=== PATIENT | male | born 1985 | race Caucasian/White ===

== ENCOUNTER 2016-08-24 00:59 | Inpatient (IN) | payer OTHER ==
[~2016-08-24] VITALS: Ht 177.8 cm; Wt 100.4 kg
[2016-08-24] VITALS (18 sets, daily range): BP systolic 119–164; BP diastolic 70–104; PULSE 60–100; RESP 10–24; TEMP 97.7–98.1; O2SAT 96–100
[2016-08-24] MEDS ORDERED: SODIUM CHLOR 0.9% 1000 ML INJ 1,000 ML IV ONE (01:06)
[2016-08-24] MEDS ORDERED: ONDANSETRON HCL 4 MG/2 ML VIAL IV PUSH ONE (01:15)
[2016-08-24] MEDS ORDERED: SODIUM CHLORIDE 0.9% FLUSH 10 ML FLUSH IVF PRN (01:15)
[2016-08-24] MEDS ORDERED: NALOXONE HCL 2 MG/2 ML VIAL IV PUSH ONE ×3 (01:15→01:30)
[2016-08-24] MEDS ORDERED: NALOXONE HCL 0.4 MG/ML AMP ONE (01:24)
[2016-08-24] MEDS ORDERED: NALOXONE INJ 4 MG in DEXTROSE 5% IN WATER INJ 246 ML IV SCH ×2 (01:30)
[2016-08-24 01:33] LABS: AUTOMATED NEUTROPHIL # 9.8 TH/MM3 (1.8-7.7); BASOPHIL # 0.2 TH/MM3 (0-0.2); BASOPHIL % 0.8 % (0.0-2.0); EOSINOPHIL # 0.4 TH/MM3 (0-0.4); EOSINOPHIL % 1.9 % (0.0-4.0); HEMATOCRIT 46.4 % (39.0-51.0); LYMPH % 45.5 % (9.0-44.0); LYMPHOCYTE # 9.5 TH/MM3 (1.0-4.8); MEAN CELL VOLUME 90.7 FL (80.0-100.0); NEUT % 46.8 % (16.0-70.0); PLATELET COUNT 317 TH/MM3 (150-450); RED BLOOD COUNT 5.12 MIL/MM3 (4.50-5.90); RED CELL DISTRIBUTION WIDTH 13.3 % (11.6-17.2)
[2016-08-24 01:36] LABS: BLOOD GAS BASE EXCESS -11.4 mmol/L (-2-2); BLOOD GAS CARBOXYHEMOGLOBIN 4.9 % (0-4); BLOOD GAS HCO3 15 mmol/L (22-26); BLOOD GAS O2 HGB SATURATION 91 % (90-100); BLOOD GAS OXYGEN CONTENT 18.8 Vol % (12.0-20.0); BLOOD GAS PCO2 43 mmHg (38-42); BLOOD GAS PO2 107 mmHg (61-120); BLOOD GAS TOTAL HGB 14.6 G/DL (12.0-16.0); TEMP CORR TO 98.6
[2016-08-24 01:37] LABS: CRITICAL VALUE YES; DRAW SITE RT FEMORAL; LITER FLOW 3 L/M; NUMBER OF ARTERIAL PUNCTURES 1; OXYGEN DEVICE NASAL CANNULA; STAT YES
[2016-08-24 01:39] LABS: HEMO FLAGS AUTO DIFF
--- NOTE | 2016-08-24 01:48 | RADRPT ---
EXAM DATE/TIME: 08/24/2016 01:19 [facility] COMPARISON: No previous studies available for comparison. INDICATIONS : Pt found unresponsive. MEDICAL HISTORY : Unobtainable SURGICAL HISTORY : Unobtainable ENCOUNTER: Initial ACUITY: 1 day PAIN SCORE: Non-responsive. LOCATION: Bilateral chest FINDINGS: A single view of the chest demonstrates the lungs to be symmetrically aerated without evidence of mas s, infiltrate or effusion. The cardiomediastinal contours are unremarkable. Osseous structures are intact. CONCLUSION: No acute disease. José Miguel Swartz MD on August 24, 2016 at 1:46 Board Certified Radiologist. This report was verified electronically.
--- NOTE | 2016-08-24 01:52 | PD ---
HPI Chief Complaint: OD/ Ingestion Time Seen by Provider: 01:06 Travel History International Travel<30 days: No Contact w/Intl Traveler<30days: No Traveled to known affect area: No History of Present Illness HPI This is an approximately 25-year-old male, brought in by private vehicle, obtunded and unconscious, reported history of recent heroin use. No other history is available. History Past Medical History Medical History: Unable to Obtain Tetanus Vaccination: Unknown Influenza Vaccination: No Past Surgical History Surgical History: Unable to Obtain Social History Alcohol Use: No (UTO) Tobacco Use: No (UTO) Allergies-Medications (Allergen,Severity, Reaction): Coded Allergies: UNOBTAINABLE (Unverified , 08/24/16) Reported Meds & Prescriptions Reported Meds & Active Scripts Active Active Prescriptions or Reported Medications Unobtainable Review of Systems ROS Limitations: Clinical Condition Physical Exam Narrative GENERAL: Approximately 25-year-old male, clammy, diaphoretic, obtunded, agonal respirations. SKIN: Cool and clammy. HEAD: Atraumatic. Normocephalic. EYES: Pinpoint pupils. ENT: No nasal bleeding or discharge. Mucous membranes pink and moist. NECK: Trachea midline. No JVD. CARDIOVASCULAR: Strong pulses. Heart rate regular. RESPIRATORY: Agonal gasping respirations, ineffectual. GASTROINTESTINAL: Abdomen obese and soft. No distention. MUSCULOSKELETAL: No obvious deformities. No edema. No obvious injuries. NEUROLOGICAL: Obtunded, minimal response to noxious stimuli, no lateralization. Data Data Last Documented VS Vital Signs Date Time Temp Pulse Resp B/P Pulse Ox O2 Delivery O2 Flow Rate FiO2 08/24/16 01:00 100 12 148/87 100 08/24/16 01:00 15.00 Orders Electrocardiogram (08/24/16 01:06) Complete Blood Count With Diff (08/24/16 01:06) Comprehensive Metabolic Panel (08/24/16 01:06) Chest, Single Ap (08/24/16 01:06) Ct Brain W/O Iv Contrast(Rout) (08/24/16 01:06) Arterial Blood Gas (Abg) (08/24/16 01:06) Blood Glucose (08/24/16 01:06) Iv Access Insert/Monitor (08/24/16 01:06) Ecg Monitoring (08/24/16 01:06) Oximetry (08/24/16 01:06) Sodium Chloride 0.9% Flush (Ns Flush) (08/24/16 01:15) Sodium Chlor 0.9% 1000 Ml Inj (Ns 1000 M (08/24/16 01:06) Alcohol (Ethanol) (08/24/16 01:06) Salicylates (Aspirin) (08/24/16 01:06) Tylenol (Acetaminophen) (08/24/16 01:06) Naloxone Inj (Narcan Inj) (08/24/16 01:15) Naloxone Inj (Narcan Inj) (08/24/16 01:15) Ondansetron Inj (Zofran Inj) (08/24/16 01:15) Naloxone Inj (Narcan Inj) (08/24/16 01:30) Arterial Blood Gas (Abg) (08/24/16 ) Naloxone Inj (Narcan Inj) (08/24/16 01:24) Naloxone Inj (Narcan Inj) (08/24/16 01:30) Admit To Inpatient (08/24/16 ) Code Status (08/24/16 02:49) Vital Signs (Adult) ASIYA.Q1H (08/24/16 02:49) Activity Bed Rest (08/24/16 02:49) ^ Elevate Head Of Bed (08/24/16 02:49) Neuro Checks . ORDERED (08/24/16 02:49) Intake + Output Q1H (08/24/16 02:49) Diet Npo (08/24/16 Breakfast) Sodium Chlor 0.9% 1000 Ml Inj (Ns 1000 M (08/24/16 02:49) Sodium Chloride 0.9% Flush (Ns Flush) (08/24/16 03:00) Sodium Chloride 0.9% Flush (Ns Flush) (08/24/16 09:00) Acetaminophen (Tylenol) (08/24/16 03:00) Lorazepam Inj (Ativan Inj) (08/24/16 03:00) Ondansetron Inj (Zofran Inj) (08/24/16 03:00) Metoclopramide Inj (Reglan Inj) (08/24/16 03:00) Prochlorperazine Supp (Compazine Supp) (08/24/16 03:00) Albuterol-Ipratropium Neb (Duoneb Neb) (08/24/16 03:00) Complete Blood Count With Diff (08/25/16 04:00) Comprehensive Metabolic Panel (08/25/16 04:00) Creatine Kinase (Cpk) (08/24/16 02:49) Magnesium (Mg) (08/25/16 04:00) Phosphorus (Po4) (08/25/16 04:00) Pt Request For Service (08/24/16 02:49) Consult Hospitalist (08/24/16 ) Epidemiologist / Telemetry ASIYA.Q8H (08/24/16 02:49) Heparin Inj (Heparin Inj) (08/24/16 03:00) Scd Bilateral/Knee High ASIYA.BID (08/24/16 02:49) Lauro Bilateral/Knee High ASIYA.QSHIFT (08/24/16 02:49) ^ Initiate Protocol (08/24/16 02:49) Instruction (08/24/16 02:49) Misc Nursing Information (08/24/16 03:00) Chlorhexidine 2% Cloth (Chlorhexidine 2% (08/24/16 04:00) Chlorhexidine 2% Cloth (Chlorhexidine 2% (08/24/16 03:00) Mrsa Pcr Surveillance (08/24/16 02:49) Docusate Sodium-Senna (Delmy-Colace) (08/24/16 09:00) Magnesium Hydroxide Liq (Milk Of Magnesi (08/24/16 03:00) Sennosides (Senokot) (08/24/16 03:00) Bisacodyl Supp (Dulcolax Supp) (08/24/16 03:00) Lactulose Liq (Lactulose Liq) (08/24/16 03:00) Inpatient Certification (08/24/16 ) Admit Order (Ed Use Only) (08/24/16 ) Labs Laboratory Tests Test 08/24/16 08/24/16 08/24/16 01:05 01:10 01:37 Blood Gas Puncture Site RT FEMORAL LT RADIAL Blood Gas Patient Temperature 98.6 98.6 Blood Gas HCO3 15 mmol/L 17 mmol/L Blood Gas Base Excess -11.4 mmol/L -9.6 mmol/L Blood Gas Oxygen Saturation 91 % 92 % Arterial Blood pH 7.18 7.21 Arterial Blood Partial 43 mmHg 44 mmHg Pressure CO2 Arterial Blood Partial 107 mmHg 104 mmHG Pressure O2 Arterial Blood Oxygen Content 18.8 Vol % 17.5 Vol % Arterial Blood 4.9 % 4.5 % Carboxyhemoglobin Arterial Blood Methemoglobin 1.0 % 0.7 % Blood Gas Hemoglobin 14.6 G/DL 13.5 G/DL Oxygen Delivery Device NASAL CANNULA NASAL CANNULA Blood Gas Liter Flow 3 L/M 3 L/M White Blood Count 21.0 TH/MM3 Red Blood Count 5.12 MIL/MM3 Hemoglobin 14.8 GM/DL Hematocrit 46.4 % Mean Corpuscular Volume 90.7 FL Mean Corpuscular Hemoglobin 29.0 PG Mean Corpuscular Hemoglobin 32.0 % Concent Red Cell Distribution Width 13.3 % Platelet Count 317 TH/MM3 Mean Platelet Volume 10.1 FL Neutrophils (%) (Auto) 46.8 % Lymphocytes (%) (Auto) 45.5 % Monocytes (%) (Auto) 5.0 % Eosinophils (%) (Auto) 1.9 % Basophils (%) (Auto) 0.8 % Neutrophils # (Auto) 9.8 TH/MM3 Lymphocytes # (Auto) 9.5 TH/MM3 Monocytes # (Auto) 1.0 TH/MM3 Eosinophils # (Auto) 0.4 TH/MM3 Basophils # (Auto) 0.2 TH/MM3 CBC Comment AUTO DIFF Differential Total Cells 100 Counted Neutrophils % (Manual) 39 % Band Neutrophils % 3 % Lymphocytes % 47 % Monocytes % 3 % Eosinophils % 1 % Basophils % 4 % Neutrophils # (Manual) 9.5 TH/MM3 Metamyelocytes 2 % Promyelocytes 1 % Differential Comment FINAL DIFF MANUAL Platelet Estimate NORMAL Platelet Morphology Comment ENLARGED Sodium Level 136 MEQ/L Potassium Level 2.4 MEQ/L Chloride Level 101 MEQ/L Carbon Dioxide Level 18.9 MEQ/L Anion Gap 16 MEQ/L Blood Urea Nitrogen 13 MG/DL Creatinine 1.38 MG/DL Estimat Glomerular Filtration 44 ML/MIN Rate Random Glucose 251 MG/DL Calcium Level 8.1 MG/DL Total Bilirubin 0.5 MG/DL Aspartate Amino Transf 48 U/L (AST/SGOT) Alanine Aminotransferase 78 U/L (ALT/SGPT) Alkaline Phosphatase 101 U/L Total Protein 8.1 GM/DL Albumin 4.2 GM/DL Salicylates Level LESS THAN 1.7 MG/DL Acetaminophen Level LESS THAN 2.0 MCG/ML Ethyl Alcohol Level 91 MG/DL MDM Medical Decision Making Medical Screen Exam Complete: Yes Emergency Medical Condition: Yes Interpretation(s) My review of EKG: Normal sinus rhythm at a rate of 93, normal axis, incomplete right bundle branch block, widespread ST changes of inferolateral ST depressions and a little bit of anterior precordial ST elevation suggestive of diffuse ischemia. LABS: CBC remarkable for white count 21,000 CMP Salicylates negative Acetaminophen Alcohol ABG 7.18/43/107/15, base excess -11.4 Repeat ABG 7.205/44/104/16.9, base excess -9.6 Differential Diagnosis Overdose, head bleed, hyperglycemia, sepsis, other Narrative Course Medical decision making Initial: This is approximately 25-year-old man who presents emergent from her private vehicle with reported history of heroin overdose. Patient obtunded, with agonal respirations, and pinpoint pupils. Responded well to 2 mg of 2 mg of Narcan with improved color, improved respirations. Still not really awake. Given a second dose of Narcan with further improvement. Able to answer some questions. ABG shows marked respiratory and metabolic acidosis. Apparently further doses of IV push Narcan arm backorder. We'll do Narcan drip, repeat ABG , may need intubation. 1:52 AM: Repeat blood gas shows some gradual improvement as metabolic acidosis. We'll we'll continue Narcan drip and volume resuscitation at this point. Critical Care Narrative Aggregate critical care time was 40 minutes. Time to perform other separately billable procedures was not included in the critical care time. My time did not include minutes spent treating any other patients simultaneously or on activities that did not directly contribute to the patient's treatment. The services I provided to this patient were to treat and/or prevent clinically significant deterioration that could result in: , disability, respiratory failure, permanent morbidity. I provided critical care services requiring my management, as noted below: Chart data review, documentation time, medication orders and management, vital sign assessments/reviewing monitor data, ordering and reviewing lab tests, ordering and interpreting/reviewing x-rays and diagnostic studies, care of the patient and discussion of the patient with the admitting physicians. Scripts Unable to Obtain Active Prescriptions or Reported Meds Sergio Jeronimo MD Aug 24, 2016 01:52
[2016-08-24 02:01] LABS: ACETAMINOPHEN LESS THAN 2.0 MCG/ML (10.0-30.0); ALKALINE PHOSPHATASE 101 U/L (45-117); ALT (GPT) 78 U/L (12-78); ANION GAP 16 MEQ/L (5-15); AST (GOT) 48 U/L (15-37); BICARBONATE 18.9 MEQ/L (21.0-32.0); BLOOD UREA NITROGEN 13 MG/DL (7-18); CHLORIDE 101 MEQ/L (98-107); GLOMERULAR FILTRATION RATE 44 ML/MIN (>89); SODIUM (NA) 136 MEQ/L (136-145); TOTAL BILIRUBIN ADULT 0.5 MG/DL (0.2-1.0)
[2016-08-24 02:02] LABS: POTASSIUM 2.4 MEQ/L (3.5-5.1)
[2016-08-24 02:03] LABS: BLOOD GAS BASE EXCESS -9.6 mmol/L (-2-2); BLOOD GAS CARBOXYHEMOGLOBIN 4.5 % (0-4); BLOOD GAS HCO3 17 mmol/L (22-26); BLOOD GAS METHEMOGLOBIN 0.7 % (0-2); BLOOD GAS O2 HGB SATURATION 92 % (90-100); BLOOD GAS OXYGEN CONTENT 17.5 Vol % (12.0-20.0); BLOOD GAS PCO2 44 mmHg (38-42); BLOOD GAS PO2 104 mmHG (61-120); BLOOD GAS TOTAL HGB 13.5 G/DL (12.0-16.0); CRITICAL VALUE YES; DRAW SITE LT RADIAL; LITER FLOW 3 L/M; NUMBER OF ARTERIAL PUNCTURES 1; OXYGEN DEVICE NASAL CANNULA; STAT YES; TEMP CORR TO 98.6; ULNAR PULSE PRESENT
--- NOTE | 2016-08-24 02:47 | RADRPT ---
EXAM DATE/TIME: 08/24/2016 02:34 [facility] COMPARISON: No previous studies available for comparison. INDICATIONS : Altered mental status; possible overdose. RADIATION DOSE: 56.35 CTDIvol (mGy) MEDICAL HISTORY : Non-responsive. SURGICAL HISTORY : Non-responsive. ENCOUNTER: Initial ACUITY: 1 day PAIN SCALE: Non-responsive LOCATION: cranial TECHNIQUE: Multiple contiguous axial images were obtained of the head. Using automated exposure control and adj ustment of the mA and/or kV according to patient size, radiation dose was kept as low as reasonably a chievable to obtain optimal diagnostic quality images. FINDINGS: CEREBRUM: The ventricles are normal for age. No evidence of midline shift, mass lesion, hemorrhage or acute in farction. No extra-axial fluid collections are seen. POSTERIOR FOSSA: The cerebellum and brainstem are intact. The 4th ventricle is midline. The cerebellopontine angle i s unremarkable. EXTRACRANIAL: The visualized portion of the orbits is intact. SKULL: The calvaria is intact. No evidence of skull fracture. CONCLUSION: 1. No acute intracranial abnormalities. José Miguel Swartz MD on August 24, 2016 at 2:44 Board Certified Radiologist. This report was verified electronically.
[2016-08-24 02:57] LABS: BANDS 3 % (0-6); BASOPHILS 4 % (0-2); EOSINOPHILS 1 % (0-4); METAMYELOCYTES 2 % (0-1); NEUTROPHIL # MANUAL DIFF 9.5 TH/MM3 (1.8-7.7); PLATELET ESTIMATE SMEAR NORMAL (NORMAL); PLATELET MORPHOLOGY ENLARGED (NORMAL); POLYS (SEG NEUTROPHILS) 39 % (16-70); PROMYELOCYTES 1 % (0-0); SCAN/DIFF FINAL DIFF MANUAL; WBC DIFF SAMPLE 100
[2016-08-24] MEDS ORDERED: MAGNESIUM HYDROXIDE SUSP 30 ML CUP PO PRN (03:00)
[2016-08-24] MEDS ORDERED: CHLORHEXIDINE GLUCONATE 2 % 1 PACK (2 CLOTHS) TOP PRN (03:00)
[2016-08-24] MEDS ORDERED: BISACODYL 10 MG SUPP RECTAL PRN (03:00)
[2016-08-24] MEDS ORDERED: ACETAMINOPHEN 325 MG TAB PO PRN (03:00)
[2016-08-24] MEDS ORDERED: SENNOSIDES 8.6 MG TAB PO PRN (03:00)
[2016-08-24] MEDS ORDERED: METOCLOPRAMIDE HCL 10 MG/2 ML VIAL IV PRN (03:00)
[2016-08-24] MEDS ORDERED: MISCELLANEOUS NURSING INFORMATION XX SCH (03:00)
[2016-08-24] MEDS ORDERED: SODIUM CHLORIDE 0.9% FLUSH 10 ML FLUSH PRN (03:00)
[2016-08-24] MEDS ORDERED: LORazepam 2 MG/ML VIAL IV PRN (03:00)
[2016-08-24] MEDS ORDERED: LACTULOSE SYRUP 20 GM/30 ML CUP PO PRN (03:00)
[2016-08-24] MEDS ORDERED: RESP: ALBUTEROL 2.5 MG/IPRATROPIUM 0.5 MG NEB (PRN) INH (03:00)
[2016-08-24] MEDS ORDERED: PROCHLORPERAZINE 25 MG SUPP RECTAL PRN (03:00)
[2016-08-24] MEDS ORDERED: ONDANSETRON HCL 4 MG/2 ML VIAL IV PRN (03:00)
[2016-08-24] MEDS: SODIUM CHLOR 0.9% 1000 ML INJ 1,000 ML IV SCH ×2 (03:38→14:44)
[2016-08-24] MEDS: CHLORHEXIDINE GLUCONATE 2 % 1 PACK (2 CLOTHS) TOP SCH (04:00)
[2016-08-24] MEDS: HEPARIN SODIUM - SQ 10,000 UNITS/ML VIAL SQ SCH ×2 (04:11→16:10)
[2016-08-24 04:20] LABS: CREATINE KINASE 131 U/L (39-308)
[2016-08-24] MEDS ORDERED: NALOXONE HCL 4 MG/10 ML MDV IV ONE (05:00)
--- NOTE | 2016-08-24 05:51 | HHI.HP ---
HPI Service Critical Care Medicine Primary Care Physician Unknown Admission Diagnosis heroin overdose Diagnosis: Travel History International Travel<30 Days: No Contact w/Intl Traveler <30 Da: No Traveled to Known Affected Are: No History of Present Illness This is an approximately 25-year-old male, brought in by private vehicle, obtunded and unconscious, reported history of recent heroin use. Patient is to altered and lethargic to be able to provide any meaningful history. All information is obtained from the medical record Review of Systems ROS Unobtainable Past Family Social History Allergies: Coded Allergies: UNOBTAINABLE (Unverified , 08/24/16) Past Medical History Unobtainable Past Surgical History Unobtainable Reported Medications Reported Meds & Active Scripts Active Active Prescriptions or Reported Medications Unobtainable Active Ordered Medications Current Medications Medications (Trade) Dose Ordered Sig/[place] Route PRN Reason Start Time Stop Time Status Last Admin Dose Admin Naloxone HCl 4 mg/ Dextrose 250 ml @ 0 mls/hr TITRATE IV 08/24/16 01:30 08/24/16 02:14 Sodium Chloride (NS 1000 ml Inj) 1,000 ml @ 84 mls/hr [id number] IV 08/24/16 02:49 08/24/16 03:38 Sodium Chloride (NS Flush) 2 ml UNSCH PRN .XX FLUSH AFTER USING IV ACCESS 08/24/16 03:00 Sodium Chloride (NS Flush) 2 ml BID .XX 08/24/16 09:00 Acetaminophen (Tylenol) 650 mg Q6H PRN PO PAIN 1-10 AND/OR FEVER >101F 08/24/16 03:00 Lorazepam (Ativan Inj) 1 mg Q1H PRN IV Agitation/Sedation 08/24/16 03:00 Ondansetron HCl (Zofran Inj) 4 mg Q6H PRN IV NAUSEA OR VOMITING 08/24/16 03:00 Metoclopramide HCl (Reglan Inj) 10 mg Q6H PRN IV NAUSEA OR VOMITING 08/24/16 03:00 Prochlorperazine (Compazine Supp) 25 mg Q12H PRN RECTAL NAUSEA OR VOMITING 08/24/16 03:00 Heparin Sodium (Porcine) (Heparin Inj) 5,000 units Q12H SQ 08/24/16 03:00 08/24/16 04:11 Miscellaneous Information 1 [id number] XX 08/24/16 03:00 08/24/16 03:00 Chlorhexidine Gluconate (Chlorhexidine 2% Cloth) 3 pack Taper DAILY@04 TOP 08/24/16 04:00 08/20/17 03:59 08/24/16 04:00 Chlorhexidine Gluconate (Chlorhexidine 2% Cloth) 3 pack UNSCH PRN TOP HYGIENIC CARE 08/24/16 03:00 Senna/Docusate Sodium (Delmy-Colace) 1 tab BID PO 08/24/16 09:00 Magnesium Hydroxide (Milk Of Magnesia Liq) 30 ml Q12H PRN PO MILD - MODERATE CONSTIPATION 08/24/16 03:00 Sennosides (Senokot) 17.2 mg Q12H PRN PO MODERATE - SEVERE CONSTIPATION 08/24/16 03:00 Bisacodyl (Dulcolax Supp) 10 mg DAILY PRN RECTAL SEVERE CONSITIPATION 08/24/16 03:00 Lactulose (Lactulose Liq) 30 ml DAILY PRN PO SEVERE CONSITIPATION 08/24/16 03:00 Family History Unobtainable Social History Unobtainable Physical Exam Vital Signs Vital Signs Date Time Temp Pulse Resp B/P Pulse Ox O2 Delivery O2 Flow Rate FiO2 08/24/16 04:00 77 08/24/16 03:09 96 Nasal Cannula 3.00 08/24/16 03:00 91 19 127/78 98 Nasal Cannula 2 08/24/16 01:00 100 12 148/87 100 08/24/16 01:00 99 15.00 Physical Exam GENERAL: Well-nourished, well-developed patient. Lethargic and altered SKIN: Warm and dry. HEAD: Normocephalic. EYES: No scleral icterus. No injection or drainage. NECK: Supple, trachea midline. No JVD or lymphadenopathy. CARDIOVASCULAR: Regular rate and rhythm without murmurs, gallops, or rubs. RESPIRATORY: Breath sounds equal bilaterally. No accessory muscle use. GASTROINTESTINAL: Abdomen soft, non-tender, nondistended. MUSCULOSKELETAL: No cyanosis, or edema. BACK: Nontender without obvious deformity. No CVA tenderness. EXTREMITIES: No clubbing cyanosis or edema Laboratory Laboratory Tests Test 08/24/16 08/24/16 08/24/16 01:05 01:10 01:37 Blood Gas Puncture Site RT FEMORAL LT RADIAL Blood Gas Patient Temperature 98.6 98.6 Blood Gas HCO3 15 17 Blood Gas Base Excess -11.4 -9.6 Blood Gas Oxygen Saturation 91 92 Arterial Blood pH 7.18 7.21 Arterial Blood Partial 43 44 Pressure CO2 Arterial Blood Partial 107 104 Pressure O2 Arterial Blood Oxygen Content 18.8 17.5 Arterial Blood 4.9 4.5 Carboxyhemoglobin Arterial Blood Methemoglobin 1.0 0.7 Blood Gas Hemoglobin 14.6 13.5 Oxygen Delivery Device NASAL CANNULA NASAL CANNULA Blood Gas Liter Flow 3 3 White Blood Count 21.0 Red Blood Count 5.12 Hemoglobin 14.8 Hematocrit 46.4 Mean Corpuscular Volume 90.7 Mean Corpuscular Hemoglobin 29.0 Mean Corpuscular Hemoglobin 32.0 Concent Red Cell Distribution Width 13.3 Platelet Count 317 Mean Platelet Volume 10.1 Neutrophils (%) (Auto) 46.8 Lymphocytes (%) (Auto) 45.5 Monocytes (%) (Auto) 5.0 Eosinophils (%) (Auto) 1.9 Basophils (%) (Auto) 0.8 Neutrophils # (Auto) 9.8 Lymphocytes # (Auto) 9.5 Monocytes # (Auto) 1.0 Eosinophils # (Auto) 0.4 Basophils # (Auto) 0.2 CBC Comment AUTO DIFF Differential Total Cells 100 Counted Neutrophils % (Manual) 39 Band Neutrophils % 3 Lymphocytes % 47 Monocytes % 3 Eosinophils % 1 Basophils % 4 Neutrophils # (Manual) 9.5 Metamyelocytes 2 Promyelocytes 1 Differential Comment FINAL DIFF MANUAL Platelet Estimate NORMAL Platelet Morphology Comment ENLARGED Sodium Level 136 Potassium Level 2.4 Chloride Level 101 Carbon Dioxide Level 18.9 Anion Gap 16 Blood Urea Nitrogen 13 Creatinine 1.38 Estimat Glomerular Filtration 44 Rate Random Glucose 251 Calcium Level 8.1 Total Bilirubin 0.5 Aspartate Amino Transf 48 (AST/SGOT) Alanine Aminotransferase 78 (ALT/SGPT) Alkaline Phosphatase 101 Total Creatine Kinase 131 Total Protein 8.1 Albumin 4.2 Salicylates Level LESS THAN 1.7 Acetaminophen Level LESS THAN 2.0 Ethyl Alcohol Level 91 Result Diagram: 08/24/160 08/24/16 011 Imaging Last [address] 08/24/16105 Signed Impressions: Service Date/Time: Wednesday, August 24, 2016 02:34 - CONCLUSION: 1. No acute intracranial abnormalities. José Miguel Swartz MD Chest X-Ray 08/24/16 0106 Signed Impressions: Service Date/Time: Wednesday, August 24, 2016 01:19 - CONCLUSION: No acute disease. José Miguel Swartz MD Assessment and Plan Assessment and Plan Altered mental status - Heroine overdose - Nasal trumpet for an airway protection - GCS 11 - CT head negative Heroine overdose - Monitor for withdrawal - Supportive care - Telemetry in the ICU - Narcan when necessary Hypokalemia - Electrolytes replacement per ICU protocol DVT GI prophylaxis - Teds SCDs subcutaneous heparin and Pepcid Critical Care: The total critical care time was 35 minutes. Time to perform other separately billable procedures was not included in the critical care time. Adolfo Costello MD Aug 24, 2016 05:51
[2016-08-24] MEDS ORDERED: POTASSIUM CHLOR 20 MEQ PREMIX 100 ML IV PRN ×2 (06:15)
[2016-08-24] MEDS ORDERED: MAGNESIUM SULFATE INJ 2 GM in SODIUM CHLORIDE 0.9% INJ 96 ML IV PRN (06:15)
[2016-08-24] MEDS ORDERED: MAGNESIUM OXIDE 400 MG TAB PO PRN (06:15)
[2016-08-24] MEDS ORDERED: POTASSIUM CHLOR 40 MEQ PREMIX 100 ML IV PRN ×2 (06:15)
[2016-08-24] MEDS ORDERED: POTASSIUM PHOSPHATE INJ 30 MMOL in SODIUM CHLOR 0.9% 250 ML INJ 250 ML IV PRN (06:15)
[2016-08-24] MEDS ORDERED: POTASSIUM CHLORIDE 25 MEQ EFFERVESCENT TAB PO PRN (06:15)
[2016-08-24] MEDS ORDERED: POTASSIUM PHOSPHATE MONOBASIC 500 MG TAB PO PRN (06:15)
[2016-08-24] MEDS ORDERED: POTASSIUM PHOSPHATE MONOBASIC 500 MG TAB PO/TUBE PRN (06:15)
[2016-08-24] MEDS ORDERED: MAGNESIUM SULFATE INJ 4 GM in SODIUM CHLORIDE 0.9% INJ 92 ML IV PRN (06:15)
[2016-08-24] MEDS ORDERED: SODIUM PHOSPHATE INJ 30 MMOL in SODIUM CHLOR 0.9% 250 ML INJ 240 ML IV PRN (06:15)
[2016-08-24] MEDS ORDERED: POTASSIUM CHLORIDE 25 MEQ EFFERVESCENT TAB PO ONE (07:30)
[2016-08-24] MEDS: DOCUSATE SODIUM 50 MG/SENNA 8.6 MG TAB PO SCH ×2 (08:10→19:54)
[2016-08-24] MEDS: POTASSIUM CHLOR 20 MEQ PREMIX 100 ML IV SCH ×2 (08:10→09:15)
[2016-08-24] MEDS: SODIUM CHLORIDE 0.9% FLUSH 10 ML FLUSH SCH ×2 (08:12→19:56)
[2016-08-24] MEDS ORDERED: POTASSIUM CHLORIDE 25 MEQ EFFERVESCENT TAB PO SCH (09:00)
[2016-08-24] MEDS ORDERED: POTASSIUM CHLORIDE 10 MEQ CAP PO ONE (12:15)
--- NOTE | 2016-08-24 13:08 | EKG ---
Date Performed: 08/24/2016 Time Performed: 01:07:10 PTAGE: 89 years EKG: Sinus rhythm INCOMPLETE RIGHT BUNDLE BRANCH BLOCK NONSPECIFIC ST & T-WAVE ABNORMALITY BORDERLINE ECG INTERPRETATI ON BASED ON A DEFAULT AGE OF 40 YEARS NO PREVIOUS TRACING DOCTOR: Ronn Moura Interpretating Date/Time 08/24/2016 13:06:44
[2016-08-24 13:24] LABS: MAGNESIUM 2.7 MG/DL (1.5-2.5)
[2016-08-24] MEDS ORDERED: LORazepam 2 MG/ML VIAL IV PUSH PRN ×2 (15:45)
[2016-08-24] MEDS ORDERED: LORazepam 1 MG TAB PO PRN (15:45)
[2016-08-24] MEDS ORDERED: LORazepam 2 MG TAB PO PRN (15:45)
[2016-08-24] MEDS ORDERED: FLUMAZENIL 0.5 MG/5 ML VIAL IV PUSH PRN (15:45)
--- NOTE | 2016-08-24 16:25 | HHI.PR ---
Addendum to Inpatient Note Addendum Reason: Additional Documentation Additional Information The pt was resting comfortably in bed. Family was at the bedside. He denied any symptoms. He wanted to walk around. He said he never used heroin before. He said he used it because he was upset. Repeat BMP pending. Add insulin sliding scale as glucose was high. Continue IVFs. Add nicotine patch, along with smoking cessation instruction. Advanced diet. Discussed with nursing. Lex Ordaz DO Aug 24, 2016 16:24
[2016-08-24] MEDS ORDERED: DEXTROSE 50% IN WATER 50 ML VIAL(D50) IV PUSH PRN (16:30)
[2016-08-24] MEDS ORDERED: GLUCAGON 1 MG/ML VIAL OTHER PRN (16:30)
[2016-08-24] MEDS: NICOTINE 21 MG/24 HR PATCH T-DERMAL SCH (17:15)
[2016-08-24] MEDS: INSULIN ASPART SUPPLEMENTAL SCALE SQ SCH (19:54)
[2016-08-24 20:56] LABS: BICARBONATE 25.3 MEQ/L (21.0-32.0); POTASSIUM 4.5 MEQ/L (3.5-5.1)
[2016-08-25] VITALS (7 sets, daily range): BP systolic 106–145; BP diastolic 67–96; PULSE 64–78; RESP 12–18; TEMP 96.8–98.3; O2SAT 97–100
[2016-08-25] MEDS: SODIUM CHLOR 0.9% 1000 ML INJ 1,000 ML IV SCH (01:10)
[2016-08-25] MEDS: HEPARIN SODIUM - SQ 10,000 UNITS/ML VIAL SQ SCH ×2 (03:00→15:37)
[2016-08-25] MEDS: CHLORHEXIDINE GLUCONATE 2 % 1 PACK (2 CLOTHS) TOP SCH (04:00)
[2016-08-25 06:03] LABS: AUTOMATED NEUTROPHIL # 4.8 TH/MM3 (1.8-7.7); BASOPHIL # 0.1 TH/MM3 (0-0.2); BASOPHIL % 0.7 % (0.0-2.0); EOSINOPHIL # 0.2 TH/MM3 (0-0.4); EOSINOPHIL % 2.5 % (0.0-4.0); HEMATOCRIT 44.1 % (39.0-51.0); LYMPH % 29.9 % (9.0-44.0); LYMPHOCYTE # 2.4 TH/MM3 (1.0-4.8); MEAN CELL VOLUME 87.8 FL (80.0-100.0); MEAN CORPUSCULAR HEMOGLOBIN 29.3 PG (27.0-34.0); MEAN CORPUSCULAR HGB CONC 33.4 % (32.0-36.0); MONO % 6.9 % (0.0-8.0); PLATELET COUNT 140 TH/MM3 (150-450); RED BLOOD COUNT 5.03 MIL/MM3 (4.50-5.90); RED CELL DISTRIBUTION WIDTH 13.8 % (11.6-17.2); WHITE BLOOD COUNT 8.1 TH/MM3 (4.0-11.0)
[2016-08-25 06:21] LABS: ALKALINE PHOSPHATASE 86 U/L (45-117); ALT (GPT) 55 U/L (12-78); ANION GAP 7 MEQ/L (5-15); AST (GOT) 27 U/L (15-37); BICARBONATE 24.4 MEQ/L (21.0-32.0); BLOOD UREA NITROGEN 10 MG/DL (7-18); CHLORIDE 108 MEQ/L (98-107); GLOMERULAR FILTRATION RATE 107 ML/MIN (>89); POTASSIUM 4.2 MEQ/L (3.5-5.1); SODIUM (NA) 139 MEQ/L (136-145); TOTAL BILIRUBIN ADULT 0.7 MG/DL (0.2-1.0)
[2016-08-25 06:22] LABS: MAGNESIUM 2.1 MG/DL (1.5-2.5)
[2016-08-25] MEDS: INSULIN ASPART SUPPLEMENTAL SCALE SQ SCH (06:35)
[2016-08-25 06:45] LABS: HEMO FLAGS AUTO DIFF
[2016-08-25 06:46] LABS: PLATELET ESTIMATE SMEAR LOW (NORMAL); PLATELET MORPHOLOGY NORMAL (NORMAL); SCAN/DIFF AUTO DIFF CONFIRMED
[2016-08-25] MEDS: NICOTINE 21 MG/24 HR PATCH T-DERMAL SCH (08:29)
[2016-08-25] MEDS: DOCUSATE SODIUM 50 MG/SENNA 8.6 MG TAB PO SCH (08:30)
[2016-08-25] MEDS: SODIUM CHLORIDE 0.9% FLUSH 10 ML FLUSH SCH (08:30)
[2016-08-25] MEDS ORDERED: REMOVE OLD PATCH T-DERMAL SCH (09:00)
[2016-08-25] MEDS ORDERED: INSULIN ASPART SUPPLEMENTAL SCALE SQ SCH (11:00)
--- NOTE | 2016-08-25 11:46 | HHI.PR ---
Subjective Remarks Follow-up encephalopathy. He is now alert and oriented 4. He regrets of his actions. States he was upset with his and experimented on heroin for the first time. He admits to alcohol use but not on a daily basis. He also smokes. Denies depression and suicidal ideations. He is gainfully employed. Discussed with RN Objective Vitals Vital Signs Date Time Temp Pulse Resp B/P Pulse Ox O2 Delivery O2 Flow Rate FiO2 08/25/16 10:00 72 121/83 08/25/16 09:00 70 136/92 08/25/16 08:00 97.8 68 106/70 08/25/16 04:00 98.2 68 14 116/81 100 08/25/16 00:00 98.3 78 12 133/67 100 08/24/16 20:00 98.0 92 18 135/104 99 08/24/16 17:01 78 17 137/81 08/24/16 16:00 97.8 70 14 123/77 08/24/16 15:00 60 10 131/75 08/24/16 14:00 76 19 123/70 08/24/16 12:00 97.7 87 24 119/74 96 I/O 08/24/16 08/24/16 08/24/16 08/25/16 08/25/16 08/25/16 07:00 15:00 23:00 07:00 15:00 23:00 Intake Total 962 ml 836 ml Balance 962 ml 836 ml Intake Oral 480 ml 240 ml IV Total 482 ml 596 ml # Voids 3 1 # Bowel Movements 1 0 Result Diagram: 08/25/16 0500 08/25/16 0500 Imaging Last Impressions Head CT 08/24/16105 Signed Impressions: Service Date/Time: Wednesday, August 24, 2016 02:34 - CONCLUSION: 1. No acute intracranial abnormalities. José Miguel Swartz MD Chest X-Ray 08/24/16105 Signed Impressions: Service Date/Time: Wednesday, August 24, 2016 01:19 - CONCLUSION: No acute disease. José Miguel Swartz MD Objective Remarks GENERAL: Well-developed, 1 nor is in no distress SKIN: Warm and dry. HEAD: Atraumatic. Normocephalic. EYES: Pupils equal and round. No scleral icterus. No injection or drainage. ENT: No nasal bleeding or discharge. Mucous membranes pink and moist. NECK: Trachea midline. No JVD. CARDIOVASCULAR: Regular rate and rhythm. RESPIRATORY: No accessory muscle use. Clear to auscultation. Breath sounds equal bilaterally. GASTROINTESTINAL: Abdomen soft, non-tender, nondistended. MUSCULOSKELETAL: Extremities without clubbing, cyanosis, or edema. No obvious deformities. NEUROLOGICAL: Awake and alert. No obvious cranial nerve deficits. Motor grossly within normal limits. Five out of 5 muscle strength in the arms and legs. Normal speech. PSYCHIATRIC: Appropriate mood and affect; insight and judgment normal. Procedures None A/P Problem List: (1) Toxic encephalopathy ICD Code: G92 Status: Acute Assessment and Plan Altered mental status/toxic encephalopathy. Resolved - Heroine overdose with etoh. Patient counseled. - CT head negative Heroine overdose - Monitor for withdrawal though I doubt he will develop since it was his first time to use it. - Supportive care - Narcan when necessary - Case management consult for substance abuse center referral Hypokalemia -Replaced Hyperglycemia. Improved Leukocytosis likely reactive. Improved Acute kidney injury. Improved with IV hydration Tobacco and alcohol abuse. CIWA protocol. Counseled. DVT GI prophylaxis - Teds SCDs subcutaneous heparin and Pepcid Discharge Planning Discharge patient to home Condition on discharge: Improved Regular Diet as tolerated Ad Salud activity no driving Rx written: None Follow-up with primary care physician in one week Roderick Swan MD Aug 25, 2016 11:46
--- NOTE | 2016-08-25 13:57 | HHI.DCPOC ---
Discharge Care Plan Diagnosis: (1) Toxic encephalopathy Your Health Problems Are: Difficulty with ADL Exercise Tolerance Goals to Promote Your Health * To prevent worsening of your condition and complications * To maintain your health at the optimal level Directions to Meet Your Goals Take your medications as prescribed Follow your dietary instruction Follow activity as directed Keep your appointments as scheduled Take your immunizations and boosters as scheduled If your symptoms worsen call your PCP, if no PCP go to Urgent Care Center or Emergency Room Smoking is Dangerous to Your Health. Avoid second hand smoke Call the 24-hour hour crisis hotline for domestic abuse at Roderick Swan MD Aug 25, 2016 13:57
== END 2016-08-25 16:13 | disposition home or self-care (01) | DRG 917 ==
LOC: NEPC 00:59 → EDBD 03:05 → NEDA 03:05 → HIMN 04:20 → N05B 08-25 11:30
PROVIDERS: ADMIT Internal Medicine; ATTEND Internal Medicine
DX: T40.1X1A Poisoning by heroin, accidental (unintentional), initial encounter (principal); G92 Toxic encephalopathy; N17.9 Acute kidney failure, unspecified; E87.4 Mixed disorder of acid-base balance; T51.0X1A Toxic effect of ethanol, accidental (unintentional), initial encounter; R40.2423 Glasgow coma scale score 9-12, at hospital admission; E87.6 Hypokalemia; F17.210 Nicotine dependence, cigarettes, uncomplicated; R73.9 Hyperglycemia, unspecified; D72.829 Elevated white blood cell count, unspecified; F10.10 Alcohol abuse, uncomplicated
CPT/HCPCS: 36600; 70450; 71010; 80048; 80053; 80307; 82550; 82805; 82948; 83735; 84100; 85007; 85025; 85027; 87641; 93005; 94762; 96365; 96375; J1644; J2310; J2405; J3480; J7030; J7060